=== PATIENT | female | born 2000 | race Caucasian/White ===

== ENCOUNTER 2021-11-03 19:36 | Emergency (ER) | payer OTHER ==
[~2021-11-03] VITALS: Ht 157.5 cm; Wt 73.1 kg
[2021-11-03 19:49] VITALS: BP 149/90
--- NOTE | 2021-11-03 19:55 | NUR ---
PT IN LOBBY.
[2021-11-03] MEDS ORDERED: NACL 0.9% 1,000 ML IV ONE (20:15)
[2021-11-03] MEDS ORDERED: KETOROLAC 30 MG/ML VIAL IVP ONE (20:15)
[2021-11-03 20:53] LABS: BASOPHILS # (AUTO) 0.1 K/uL (0.00-0.22); BASOPHILS % (AUTO) 0.5 % (0.0-2.0); EOSINOPHILS # (AUTO) 0.2 K/uL (0-0.4); EOSINOPHILS % (AUTO) 1.9 % (0.0-4.0); HEMATOCRIT 38.7 % (36-48); HEMOGLOBIN 12.9 g/dL (12.0-16.0); LYMPHOCYTES # (AUTO) 3.2 K/uL (2.5-16.5); LYMPHOCYTES % (AUTO) 31.4 % (20.5-51.1); MEAN CORPUSCULAR HEMOGLOBIN 28 pg (27-31); MEAN CORPUSCULAR HGB CONC 33 g/dL (33-37); MEAN CORPUSCULAR VOLUME 82.4 fL (80-94); MONOCYTES # (AUTO) 0.9 K/uL (0.8-1.0); MONOCYTES % (AUTO) 8.5 % (1.7-9.3); NEUTROPHILS # (AUTO) 5.9 K/uL (1.8-7.7); NEUTROPHILS % (AUTO) 57.7 % (42.2-75.2); PLATELET COUNT (AUTO) 244 K/uL (140-450); RED CELL DISTRIBUTION WIDTH 15.1 % (11.6-13.7); WHITE BLOOD COUNT (AUTO) 10.2 K/uL (4.8-10.8)
[2021-11-03 21:25] LABS: ALBUMIN 4.2 g/dL (3.4-5.0); ANION GAP 13.3 (8-16); CARBON DIOXIDE 25.2 mmol/L (21-32); CREATININE 0.6 mg/dL (0.6-1.3); POTASSIUM 3.5 mmol/L (3.5-5.1); TOTAL BILIRUBIN 0.3 mg/dL (0.0-1.0)
--- NOTE | 2021-11-03 21:55 | NUR ---
RECEIVED IN BED 8 WITH C/O FEVER OFF AND ON X 5 DAYS. C/O H/A TOO. IS AWAKE AND ALERT APPEARS IN NAD
[2021-11-03] MEDS ORDERED: KETOROLAC 15 MG/ML VIAL ONE (22:46)
--- NOTE | 2021-11-03 22:55 | NUR ---
INF A & B SWABS OBTAINED AND SENT TO LAB
[2021-11-03] MEDS ORDERED: ONDA-188 SL (23:17)
[2021-11-03] MEDS ORDERED: IBUP-2213 PO (23:17)
[2021-11-03 23:30] VITALS: BP 149/90
--- NOTE | 2021-11-03 23:30 | NUR ---
Patient discharged with v/s stable. Written and verbal after care instructions given and explained. Patient alert, oriented and verbalized understanding of instructions. Ambulatory with steady gait. All questions addressed prior to discharge. ID band removed. Patient advised to follow up with PMD. Rx of IBUPROFEN AND ZOFRAN given. Patient educated on indication of medication including possible reaction and side effects. Opportunity to ask questions provided and answered.
== END 2021-11-03 23:30 | disposition home or self-care (01) ==
LOC: MED 19:36
DX: R50.9 Fever, unspecified (principal); R11.2 Nausea with vomiting, unspecified; E86.0 Dehydration
CPT/HCPCS: 36415; 71045; 80053; 83605; 85025; 87804; 96361; 96374; 99284; J1885; J7030

== ENCOUNTER 2022-12-15 23:26 | Emergency (ER) | payer OTHER ==
[~2022-12-15] VITALS: Ht 157.5 cm; Wt 90.7 kg
[~2022-12-15 23:26] MED LIST: IBUP-2213 PO; ONDA-188 SL
[2022-12-15 23:51] VITALS: BP 141/79
--- NOTE | 2022-12-16 01:54 | NUR ---
Patient taken to bed 4.
--- NOTE | 2022-12-16 01:57 | NUR ---
C/O cough and congestion x 3 days. Patient reported, had cough, congestion for 3 days, and nausea, and diarrhea x today. Patient had close contact with COVID-19 patient. PMHx : DENIES
--- NOTE | 2022-12-16 02:18 | NUR ---
Patient being evaluated by physician at bedside.
--- NOTE | 2022-12-16 02:23 | NUR ---
COVID-19 swab collected and sent to lab.
[2022-12-16 03:10] VITALS: BP 141/79
--- NOTE | 2022-12-16 03:10 | NUR ---
Patient discharged with v/s stable. Written and verbal after care instructions given and explained. Patient verbalized understanding. Ambulatory with steady gait. All questions addressed prior to discharge. Advised to follow up with PMD. D/C BY .
== END 2022-12-16 03:10 | disposition home or self-care (01) ==
LOC: MED 23:26
DX: A08.4 Viral intestinal infection, unspecified (principal); J06.9 Acute upper respiratory infection, unspecified; Z20.822 Contact with and (suspected) exposure to COVID-19; Z79.1 Long term (current) use of non-steroidal anti-inflammatories (NSAID); Z79.899 Other long term (current) drug therapy
CPT/HCPCS: 99283